=== PATIENT | male | born 2000 | race Caucasian/White ===

== ENCOUNTER 2024-10-06 13:53 | Emergency (ER) | payer OTHER ==
[~2024-10-06] VITALS: Ht 180.3 cm; Wt 70.8 kg
[2024-10-06 14:32] LABS: Basophils # (auto) 0.1 10 ^3/uL (0-0.2); Basophils % (auto) 0.7 % (0.0-2.0); Eosinophils # (auto) 0 10 ^3/uL (0-0.8); Eosinophils % (auto) 0.1 % (0.0-7.0); Hematocrit 47.3 % (41.0-53.0); Hemoglobin 16.4 g/dL (13.5-17.5); Lymphocytes # (auto) 0.8 10 ^3/uL (0.4-5.4); Lymphocytes % (auto) 6.5 % (10.0-50.0); Mean Corpuscular Hemoglobin 31.5 pg (28.0-32.0); Mean Corpuscular Hgb Conc. 34.8 g/dL (32.0-36.0); Mean Corpuscular Volume 90.7 fL (80.0-100.0); Monocytes # (auto) 0.9 10 ^3/uL (0-1.3); Monocytes % (auto) 6.9 % (0.0-12.0); Neutrophils # (auto) 10.6 10 ^3/uL (1.6-8.6); Neutrophils % (auto) 85.8 % (37.0-80.0); Nucleated Red Blood Cells % 0.1 %; Platelet Count (auto) 356 10^3/uL (140-450); Red Blood Cells 5.21 10^6/uL (4.5-5.90); Red Cell Distribution Width 13.2 % (11.8-14.3); White Blood Cell 12.4 10^3/uL (4.4-10.8)
[2024-10-06 14:38] VITALS: TEMP 99
[2024-10-06] MEDS: SODIUM CHLORIDE 0.9% 1,000 ML IV ONE (14:38)
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
[2024-10-06] MEDS: ONDANSETRON HCL 4 MG/2 ML VIAL IV ONE (14:48)
[2024-10-06] MEDS: MORPHINE SULFATE 4 MG/ML SYR/VIAL IV ONE (14:49)
[2024-10-06] MEDS: IOHEXOL 300 MG/ML 100ML BOTTLE IJ ONE ×2 (14:49→16:51)
[2024-10-06 14:50] LABS: Partial Thromboplastin Time 30.2 SEC (24.5-34.5); Prothrombin Time 10.6 sec (9.3-11.8)
[2024-10-06 14:55] LABS: Alanine Aminotransferase 27 U/L (7-40); Alkaline Phosphatase 83 U/L (46-116); Anion Gap 6 (5-15); Aspartate Aminotransferase 32 U/L (13-40); BUN/Creatinine Ratio 13.5 (10.0-20.0); Bilirubin, Total 0.7 mg/dL (0.2-1.0); Blood Urea Nitrogen 14 mg/dL (9-23); Chloride 100 mmol/L (98-107); Potassium 4.7 mmol/L (3.5-5.1); Sodium 138 mmol/L (136-145); Total Protein 8.1 g/dL (5.7-8.2)
[2024-10-06 14:57] LABS: Albumin 5.5 g/dL (3.2-4.8); Calcium 10.9 mg/dL (8.7-10.4); Carbon Dioxide 32 mmol/L (20-31); Glucose 108 mg/dL (74-106)
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
[2024-10-06] MEDS ORDERED: CYCL-838 PO (17:36)
[2024-10-06] MEDS ORDERED: GABA300T4 PO (17:36)
[2024-10-06 18:00] VITALS: BP 133/72; PULSE 90; RESP 16; O2SAT 97
== END 2024-10-06 18:06 | disposition home or self-care (01) ==
LOC: ER 13:53
DX: S30.1XXA Contusion of abdominal wall, initial encounter (principal); S09.8XXA Other specified injuries of head, initial encounter; Z79.899 Other long term (current) drug therapy; V89.2XXA Person injured in unspecified motor-vehicle accident, traffic, initial encounter; Y93.55 Activity, bike riding; Y92.488 Other paved roadways as the place of occurrence of the external cause; Y99.8 Other external cause status
CPT/HCPCS: 36415; 70450; 71260; 74177; 80053; 85025; 85610; 85730; 96361; 96374; 96375; 99285; J2270; J2405; J7030; Q9967